=== PATIENT | male | born 1935 | race Two or more races ===

== ENCOUNTER 2022-07-06 10:54 | Outpatient (CLI) | payer OTHER | END 2022-07-06 10:59 | disposition home or self-care (01) | LOC: RAD 10:54 | PROVIDERS: ATTEND Physical Medicine & Rehabilitation | DX: M54.50 Low back pain, unspecified (principal) ==

== ENCOUNTER 2024-09-18 09:59 | Outpatient (CLI) | payer OTHER ==
[~2024-09-18 09:59] MED LIST: PAXLOVID 300-11 EAC1 PO; PROTONIX IV40 MG IV; ZESTRIL20 MG PO; ZOCOR20 MG PO
== END 2024-09-18 10:02 | disposition home or self-care (01) ==
LOC: RAD 09:59
PROVIDERS: ATTEND Physical Medicine & Rehabilitation
DX: M54.59 Other low back pain (principal)